=== PATIENT | male | born 1960 | race Caucasian/White ===

== ENCOUNTER → 2019-05-05 08:09 | Outpatient (CLI) | payer OTHER, SELFPAY ==
--- NOTE | ~2019-05-05 | US_ITS ---
EXAMINATION: US scrotum doppler DATE: 05/05/2019 09:13 INDICATION: Spermatocele, pain and palpable abnormality of the left scrotum TECHNIQUE: Testicular sonogram utilizing grayscale and Doppler COMPARISON: 01/24/2016 FINDINGS: The right testis measures 4.5 x 1.9 x 2.2 cm. The left testis measures 4.0 x 2.1 x 2.8 cm. There is normal vascular flow to both testes. The right epididymis is normal with normal vascular guera w. There are multiple cystic areas in the region of the left epididymis, the largest of which measure s 4.9 x 3.5 cm and is increased in size since the comparison examination. IMPRESSION: 1. Complex cystic area of the left scrotum with interval increase in size which could reflect a compl ex hydrocele versus spermatoceles. Reviewed, dictated and finalized at location A. SETTER IMPRESSION: 1. Complex cystic area of the left scrotum with interval increase in size which could reflect a complex hydrocele versus spermatoceles.
== END ==
PROVIDERS: PCP Emergency Medicine; Visit Provider Urology
DX: N43.40 Spermatocele of epididymis, unspecified (principal)
CPT/HCPCS: 76870; 93976

== ENCOUNTER 2020-11-25 02:00 | Day surgery (SDC) | payer OTHER, SELFPAY ==
[2020-11-10 14:27] VITALS: BMI 23.3
--- NOTE | 2020-11-24 12:14 | PM.HPGS ---
History of Present Illness History of Present Illness Consent: Risks, benefits, and alternatives have been discussed and questions answered. Patient agrees to proceed with procedure. Chief complaint: GERD K21.9 Narrative: Darwin Medrano is a 60 year old male With refractory reflux symptoms. He has taken Nexium [id number] for many years intermittently. He also has an almost constant upper abdominal tenderness which has not responded to Nexium Review of Systems Review of Systems: All systems reviewed & are unremarkable except as noted in HPI and below PMFSH Family History Family History Mother Family history of congestive heart failure Father Family history of heart disease in male family member before age 55 Social History Social History Smoking status: Never smoker Alcohol intake: current Drinks per week: 6 Substance use: never Living arrangements: with family Spiritual care concerns: No Meds Home Medications and Allergies Home Medications Medication Instructions Recorded Confirmed Type diphenhydramine HCl 25 mg capsule 50 mg PO Q4-6H PRN 11/09/19 11/10/20 History cholecalciferol (vitamin D3) 50 See Rx Instructions .ROUTE 08/19/20 11/10/20 Rx mcg (2,000 unit) capsule .COMPLEX #90 cap pantoprazole 40 mg tablet,delayed 40 mg PO QAM 28 Days #30 tablet 10/18/20 11/10/20 Rx release Allergies Allergy/AdvReac Type Severity Reaction Status Date / Time No Known Allergies Allergy Unknown Verified 11/25/20 08:17 Exam Const: General: alert Orientation/consciousness: patient oriented x3 Resp: Auscultation: clear to auscultation bilaterally Cardio: Rhythm: regular rhythm GI: GI Palp: Yes Soft to palpation and No Tenderness to palpation present (GI) Neuro: General: patient oriented x3 Assessment and Plan Assessment and plan (1) Gastroesophageal reflux disease: Code(s): K21.9 - Gastro-esophageal reflux disease without esophagitis Status: Acute Assessment and Plan: EGD with possible biopsy or dilatation or cautery.
[2020-11-25 08:18] VITALS: BP 149/87; PULSE 84; RESP 16; TEMP 36.7; O2SAT 100; BMI 22.6
[2020-11-25] MEDS: LACTATED RINGERS 1,000 ML 150 ML IV CONT (08:25)
--- NOTE | 2020-11-25 08:52 | WPDANESEPPF ---
Anes - Initial Pre Proc Eval Procedure: Operation Date: 11/25/20 09:15 Proposed Procedures p Esophagogastroduodenoscopy - Rasta Joshua MD Date/Time: 11/25/20 08:52 Surgeon: Rasta Joshua MD Pre Op Diagnosis: GERD K21.9 Patient Data Age: 60 Gender: M Height: 1.8 m Weight: 73.5 kg Last Vital Signs Temp 98.1 F 11/25/20 08:18 Pulse 84 11/25/20 08:18 Resp 16 11/25/20 08:18 BP 149/87 H 11/25/20 08:18 Pulse Ox 100 11/25/20 08:18 Allergies Allergy/AdvReac Type Severity Reaction Status Date / Time No Known Allergies Allergy Unknown Verified 11/25/20 08:17 Home Medications Medication Instructions Recorded Confirmed Type diphenhydramine HCl 25 mg capsule 50 mg PO Q4-6H PRN 11/09/19 11/10/20 History cholecalciferol (vitamin D3) 50 See Rx Instructions .ROUTE 08/19/20 11/10/20 Rx mcg (2,000 unit) capsule .COMPLEX #90 cap pantoprazole 40 mg tablet,delayed 40 mg PO QAM 28 Days #30 tablet 10/18/20 11/10/20 Rx release Patient hx anesthesia problems: none Family hx anesthesia problems: none PMFSH Past Medical History Medical History (Updated 11/25/20 @ 08:48 by Cuong Bear MD) Elevated cholesterol Gastroesophageal reflux disease Family History Family History Mother Family history of congestive heart failure Father Family history of heart disease in male family member before age 55 Social History Social History Smoking status: Never smoker Alcohol intake: current Drinks per week: 6 Substance use: never Living arrangements: with family Spiritual care concerns: No Anes - Eval Final PreProcedure Day of Procedure 11/25/20 08:52 Patient weight: normal Heart: regular rate and rhythm Lungs: clear to auscultation Airway: Mallampati scale class II Neurological: alert and oriented Last oral intake: >/= 8 hours ASA classification: II Emergent: no Anesthetic plan: proceed Anesthesia type and monitoring: general GIVS and standard monitoring Informed Consent: The patient's anesthetic plan and its attendant risks and benefits were discussed with the patient/family/POA. Questions were solicited and answers provided to the satisfaction of the patient/family/POA.
[2020-11-25 09:24] VITALS: BP 110/71; PULSE 70; RESP 13; O2SAT 97
[2020-11-25 09:34] VITALS: BP 111/75; PULSE 68; RESP 11; O2SAT 97
[2020-11-25 09:44] VITALS: BP 109/77; PULSE 89; RESP 13; O2SAT 99
== END 2020-11-25 10:05 | disposition home or self-care (01) ==
PROVIDERS: PCP Emergency Medicine; Visit Provider Internal Medicine Gastroenterology
PROC: 0DJ08ZZ Inspection of Upper Intestinal Tract, Via Natural or Artificial Opening Endoscopic (ICD-10-PCS; CPT 43235; principal; 2020-11-25 09:15)
DX: K21.00 Gastro-esophageal reflux disease with esophagitis, without bleeding (principal); K31.7 Polyp of stomach and duodenum; E78.00 Pure hypercholesterolemia, unspecified
CPT/HCPCS: 43239; 87081; J2704; J7120